=== PATIENT | female | born 1975 | race Caucasian/White ===

== ENCOUNTER → 2017-06-19 | Outpatient (CLI) | payer OTHER ==
[~2017-06-19] MED LIST: ADVAIR 2501 DISK W/D; AFRIN3 ML; ALBUTEIN INH; ALBUTEROL17 GM; ALBUTEROL17 GM INH; ALBUTEROL2.5 MG/0.5 IH; AURALGAN OTIC S10 M1 AD; BACTRIM DS TABL1 TA1 PO; BACTRIM DS TABL1 TA2; BENZONATATE PO; BROMPHED DM PO; CIPRO PO; CLARITIN10 M3 DOB; CLARITIN10 M3 PO; CLARITIN10 MG; FLONASE16 GM; GLUCOPHAGE500 M1 PO; HCTZ; IBUPROFEN100 MG PO; KEFLEX PO; LANTUS100 U/M1 SUBQ; LANTUS100 U/ML SQ; LANTUS100 UNITS/ SQ; LEVAQUIN750 MG PO; LISINOPRIL PO; LISINOPRIL10 MG PO; LISINOPRIL20 MG PO; METFORMIN HCL500 M1; METFORMIN HCL500 M1 PO; METFORMIN PO; MONDOXYNE NL100 MG PO; NASONEX NASAL SPRAY; NO MEDICATIONS; ORTHO TRI-7 DAYS X; PHENERGAN DM1 ML DOB; PHENERGAN PO; PHENERGAN25 M1 PO; PREDNISONE PO; PROMETHAZINE D118 ML PO; PROVENTIL0.83 MG/ML IH; PROZAC; PYRIDIUM; PYRIDIUM100 MG PO; ROBAXIN500 MG PO; SINGULAIR; SUDAFED30 M1 PO; TAMIFLU75 M1 DOB; TESSALON200 MG PO; TOPAMAX; VICODIN 5/1 TAB 5/50 PO; VOLTAREN75 MG PO; ZANTAC; ZITHROMAX PO; ZYRTEC; ZYRTEC PO; ZYRTEC10 M1 PO; [UNRECOGNIZED DRUG - SUPPLY] INJ
--- NOTE | ~2017-06-19 | MR152 ---
[facility] A Service of [facility] & [facility] RADIOLOGY TEXT RESULTS PATIENT: EYAL COOK LOCATION: [facility] : 77 UNIT #: [id number] AGE: [address]: Garett Gilliam MD SEX: F ORDER DR: [id number] [address] [address] [id number] O MR#: [id number] Acc #: [id number] NAME: EYAL COOK : 1975 SEX: F STUDY DATE/TIME: 06/19/2017 16:14 UNIT: [facility] ROOM: STUDY DESCRIPTION: MR Pelvis Wo Contrast Attending Physician: Garett Gilliam M.D. Referring Physician: Garett Gilliam M.D. Ordering Physician: Garett Gilliam M.D. Primary Care Physician: Svetlana Hyman A.P.R.N. MRI CENTER REPORT This report is preliminary unless electronic signature is present. EXAM MRI pelvis without contrast 06/19/2017 HISTORY 42-year-old female with right hip, buttock, and groin pain for 4 months. No specific injury. No prior hip surgery. COMPARISON Right hip x-rays 05/07/2017. CT abdomen and pelvis 09/08/2012. TECHNIQUE Routine unenhanced multiplanar, multisequence high field MR imaging of the pelvis and both hips was performed. This CT exam was performed with one or more of the following radiation dose reduction techniques: automatic exposure control, adjustment of mA and/or kV according to patient size, and iterative reconstruction. FINDINGS Bone marrow signal appears within normal limits. No evidence of acute fracture, stress reaction, avascular necrosis, or significant arthrosis. The joint spaces in both hips is normally maintained. No subchondral marrow edema in either hip to suggest significant articular cartilage loss. No hip effusions. No evidence of an acetabular labral tear. Gluteal tendon insertions and common hamstring tendon origins are within normal limits bilaterally. No significant bursal inflammation. Pelvic musculature is normal in signal. Sacrum and SI joints intact. Visualized visceral pelvis is unremarkable. Incidental note of a small adnexal cysts, likely physiologic. No free pelvic fluid. IMPRESSION 1. No evidence of acute fracture, stress reaction, avascular necrosis, STS. [facility] A Service of [facility] & [facility] RADIOLOGY TEXT RESULTS PATIENT: EYAL COOK LOCATION: [facility] : [birth year] UNIT #: [id number] AGE: [address]: Garett Gilliam MD SEX: F ORDER DR: or significant arthrosis involving either hip. 2. Gluteal tendon insertions and common hamstring tendon origins are within normal limits bilaterally. 3. No evidence of an acetabular or labral tear. No significant bursal inflammation. Dictated by... Nico Villanueva M.D. THIS IS AN ELECTRONICALLY VERIFIED REPORT Nico Villanueva M.D. at 06/22/2017 5:01 PM LAVONNE/hari TD: 06/22/2017 16:05 JOB #: [id number] MRI CENTER REPORT Page 1 of 1
== END | disposition home or self-care (01) ==
LOC: SMRI 06-18 13:00
DX: M70.70 Other bursitis of hip, unspecified hip (principal); M79.1 Myalgia
CPT/HCPCS: 72195